=== PATIENT | female | born 1975 | race American Indian/Alaskan Native ===

== ENCOUNTER 2021-01-27 14:17 | Outpatient (CLI) | payer OTHER ==
--- NOTE | 2021-01-28 12:45 | Mammography Report ---
DIGITAL SCREENING MAMMOGRAM WITH CAD, 01/27/2021 CLINICAL INFORMATION / INDICATION: Routine screening mammography. SCREENING MAMMO Z12.31 TECHNIQUE: Digital bilateral 2D mammography was obtained in the craniocaudal and mediolateral obliqu e projections. This examination was interpreted with the benefit of Computer-Aided Detection analysis . COMPARISON: None currently available. FINDINGS: Breast Density: There are scattered areas of fibroglandular density. No dominant mass, suspicious calcifications, or architectural distortion in the right breast. There is an area of grouped pleomorphic calcifications in the left lower inner quadrant in the middle depth approximately 8 cm from the nipple. There is an associated ill-defined focal asymmetric densit y at that site. The combined abnormality measures approximately 1.8 cm in greatest dimension. IMPRESSION: Ill-defined focal asymmetric density with associated pleomorphic calcifications in the le ft lower inner quadrant. Magnification views and ultrasound of the left breast are recommended for fu rther characterization. Follow up recommendation: Special View: Mag and ultrasound BI-RADS Category 0: INCOMPLETE. Needs additional imaging evaluation and/or prior mammograms for edwige oro. A "normal" or negative report should not discourage follow up or biopsy of a clinically significant f inding. A written summary of these findings will be mailed to the patient. The patient will be entered into a mammography reporting system which will generate a reminder letter for the patient's next appointmen t at the appropriate interval. The [employer] recommends yearly mammograms starting at age 40 and continuing as l choco as a woman is in good health. Breast MRI is recommended for women with an approximate 20-25% or greater lifetime risk of breast cancer, including women with a strong family history of breast or ova jose cancer or who have been treated for Hodgkin's disease. Signer Name: Rosas Foster MD Signed: 01/28/2021 12:41 PM Workstation Name: [employer]
== END 2021-01-27 14:18 | disposition home or self-care (01) ==
LOC: SPVWC 14:17
PROVIDERS: ATTEND Nurse Practitioner
DX: Z12.31 Encounter for screening mammogram for malignant neoplasm of breast (principal); N64.89 Other specified disorders of breast
CPT/HCPCS: 77067